=== PATIENT | male | born 1965 | race Caucasian/White ===

== ENCOUNTER 2017-02-12 15:56 | Emergency (ER) | payer OTHER ==
[2017-02-12 16:02] VITALS: BP 130/99; PULSE 96; TEMP 98.5; BMI 30.7
--- NOTE | 2017-02-12 17:21 | PDOC ---
History of Present Illness - General Chief Complaint: Eye Problem Stated Complaint: PINK EYE Time Seen by Provider: 02/12/17 17:20 History Source: Patient Exam Limitations: No Limitations - History of Present Illness Initial Comments: 02/12/17 18:08 My Chief Complaint: Redness and discharge from left eye starting today History of present illness: Patient is a 51-year-old male with a history of depression here today complaining of irritation to his left eye with yellowish discharge and redness that started today. Patient denies any injury to his eye. Patient denies any change in vision. Patient denies any other symptoms. 02/12/17 18:12 Timing/Duration: getting worse (today ) Severity: mild Associated Symptoms: reports: denies symptoms Past History - Past Medical History Allergies/Adverse Reactions: Allergies Allergy/AdvReac Type Severity Reaction Status Date / Time ciprofloxacin [From Cipro] AdvReac Intermediate Verified 02/12/17 16:02 ciprofloxacin HCl AdvReac Intermediate Verified 02/12/17 16:02 [From Cipro] Home Medications: Ambulatory Orders Bupropion HCl [Wellbutrin -] 75 mg PO DAILY 02/12/17 Risperidone [Risperdal] 2 mg PO DAILY 02/12/17 Psychiatric Problems: Yes (depression) - Suicide/Smoking/Psychosocial Hx Smoking History: Current every day smoker Have you smoked in the past 12 months: Yes Number of Cigarettes Smoked Daily: 20 Information on smoking cessation initiated: Yes Hx Alcohol Use: No Drug/Substance Use Hx: No Substance Use Type: None Review of Systems - Review of Systems Able to Perform ROS?: Yes Constitutional: No: Symptoms Reported HEENTM: Yes: Eye Pain (irritation left eye with yellowish discharge ). No: Tearing, Recent change in vision, Double Vision, Cataracts Respiratory: No: Symptoms reported Cardiac (ROS): No: Symptoms Reported ABD/GI: No: Symptoms Reported : No: Symptoms Reported Musculoskeletal: No: Symptoms Reported Integumentary: No: Symptoms Reported Neurological: No: Symptoms reported *Physical Exam - Vital Signs Last Vital Signs Temp Pulse Resp BP Pulse Ox 98.5 F 96 H 18 130/99 97 02/12/17 15:59 02/12/17 15:59 02/12/17 15:59 02/12/17 15:59 02/12/17 15:59 - Physical Exam General Appearance: Yes: Appropriately Dressed HEENT: positive: EOMI, BLAS, Other (left conjunctiva erythema, yellowish discharge, sclera injected ). negative: Photophobia, Pharyngeal Erythema, Tonsillar Exudate, Tonsillar Erythema, Nasal Congestion, Rhinorrhea Neck: negative: Lymphadenopathy (R), Lymphadenopathy (L) Respiratory/Chest: positive: Lungs Clear, Normal Breath Sounds. negative: Chest Tender, Respiratory Distress Cardiovascular: positive: Regular Rhythm, Regular Rate, S1, S2 Integumentary: positive: Normal Color Neurologic: positive: Alert, Normal Response, Responsive Medical Decision Making - Medical Decision Making 02/12/17 18:12 Patient is a 51-year-old male with a history of depression here today complaining of irritation to his left eye with yellowish discharge and redness that started today. Patient denies any injury to his eye. Patient denies any change in vision. Patient denies any other symptoms. Left eye conjunctivitis PLAN: Tobramycin 0.3% ophthalmic solution 2 drops in left eye now then 4 times a day for 5 days Patient to follow with residential building inspector if symptoms worsen *DC/Admit/Observation/Transfer Diagnosis at time of Disposition: Conjunctivitis Qualifiers: Conjunctivitis type: acute Acute conjunctivitis type: unspecified Laterality: left Qualified Code(s): H10.32 - Unspecified acute conjunctivitis, left eye; H10.32 - Unspecified acute conjunctivitis, left eye - Discharge Dispostion Disposition: HOME Condition at time of disposition: Stable - Referrals Referrals: Aicha Wiggins MD [Primary Care Provider] - Cabrera Vazquez MD [Staff Physician] - - Patient Instructions Additional Instructions: Apply 2 drops of solution to left eye 4 times a day for 5 days Return to emergency room if symptoms worsen He may follow up with residential building inspector in a few days if symptoms worsen Avoid rubbing your left eye if you must touch her eye wash her hands thoroughly afterwards Patient voiced understanding of discharge instructions and all questions were answered
[2017-02-12] MEDS ORDERED: TOBRAMYCIN 0.3% OPHTH SOLN 5 ML BOTTLE OS ONE (18:09)
[2017-02-12] MEDS ORDERED: TOBRAMYCIN 0.3% OPHTH SOLN 5 ML BOTTLE ONE (18:11)
== END 2017-02-12 18:19 | disposition home or self-care (01) ==
LOC: JERFT 15:56
DX: H10.32 Unspecified acute conjunctivitis, left eye (principal); F32.9 Major depressive disorder, single episode, unspecified
CPT/HCPCS: 99281-25

== ENCOUNTER 2019-10-29 14:59 | Emergency (ER) | payer OTHER ==
[2019-10-29 15:04] VITALS: BP 141/83; PULSE 89; TEMP 98; BMI 32.1
--- NOTE | 2019-10-29 15:57 | PDOC ---
History of Present Illness - General Chief Complaint: Rash Stated Complaint: RASH Time Seen by Provider: 10/29/19 15:38 - History of Present Illness Initial Comments: 10/29/19 15:54 54-year-old male with a psych history presents for evaluation of a rash on his left flank x1 month no joint pain or systemic symptoms treated with a antibiotic 3 times a day for 7 days the redness never went away. Past History - Medical History Allergies/Adverse Reactions: Allergies Allergy/AdvReac Type Severity Reaction Status Date / Time ciprofloxacin [From Cipro] AdvReac Intermediate Verified 10/29/19 15:04 ciprofloxacin HCl AdvReac Intermediate Verified 10/29/19 15:04 [From Cipro] Home Medications: Ambulatory Orders Bupropion HCl [Wellbutrin -] 75 mg PO DAILY 02/12/17 Risperidone [Risperdal] 2 mg PO DAILY 02/12/17 Doxycycline Hyclate 100 mg PO BID #21 tablet 10/29/19 COPD: No Psychiatric Problems: Yes (depression) - Psycho-Social/Smoking History Smoking History: Current every day smoker Have you smoked in the past 12 months: Yes Number of Cigarettes Smoked Daily: 20 Information on smoking cessation initiated: No - Substance Abuse Hx (Audit-C & DAST Scrn) How often the patient has a drink containing alcohol: Never Score: In Men: 4 or > Positive; In Women: 3 or > Positive: 0 Screen Result (Pos requires Nsg. Audit-10AR): Negative Review of Systems - Review of Systems Constitutional: No: Fever Musculoskeletal: No: Joint Pain Integumentary: Yes: Rash *Physical Exam - Vital Signs Last Vital Signs Temp Pulse Resp BP Pulse Ox 98 F 89 18 141/83 98 10/29/19 15:01 10/29/19 15:01 10/29/19 15:01 10/29/19 15:01 10/29/19 15:01 - Physical Exam 10/29/19 15:54 There is a large erythemic mildly warm rash with well-circumscribed borders a clear center and a very faint larger erythemic rash around it with central clearing on the left side of the abdomen and flank Medical Decision Making - Medical Decision Making 10/29/19 15:55 Discussed this case with emergency room attending. Patient is most likely positive for Lyme will get Lyme Babesia and Ehrlichia titers and start the patient on a course of doxycycline with follow-up with his primary care physician. I have reviewed the pathophysiology with the patient. They are in agreement with the treatment plan all questions were answered to their satisfaction. Understanding for follow-up without fail was also conveyed to the patient. Again they are in agreement. Patient advised on the warnings for doxycycline photosensitivity. Patient does work outdoors he was encouraged to wear large BiPAP and use plenty of sunscreen multiple times a day with reapplications. Discharge - Discharge Information Problems reviewed: Yes Clinical Impression/Diagnosis: Lyme disease Condition: Stable Disposition: HOME - Admission No - Additional Discharge Information Prescriptions: Doxycycline Hyclate 100 mg PO BID #21 tablet - Follow up/Referral Referrals: Richard Berman MD [Primary Care Provider] - - Patient Discharge Instructions Patient Printed Discharge Instructions: DI for Lyme Disease Additional Instructions: Please start the doxycycline and take the medication and finish it as directed. Return to the emergency room for worsening symptoms and without fail follow-up with your primary care physician in 1 to 2 days for further evaluation and treatment options. Doxycycline is a medication which will cause light sensitivity. You will get easily sunburned. You need to keep covered, wear a large brim hat and apply sunscreen multiple times a day. Longsleeve shirts and total body coverage is recommended while on doxycycline. - Post Discharge Activity Work/Back to School Note: Back to Work
[2019-11-01 15:07] LABS: IgG Ab 23 kDa Band Present (.); IgG Ab 28 kDa Band Absent (.)
[2019-11-04 15:07] LABS: E.chaff HME IgG Negative (Neg:<1:64)
[2019-11-04 18:07] LABS: BABESIA MICROTI ANTIBODY IGG <1:10 (Neg:<1:10); BABESIA MICROTI ANTIBODY IGM <1:10 (Neg:<1:10)
== END 2019-10-29 16:01 | disposition home or self-care (01) ==
LOC: JERFT 14:59
DX: A69.20 Lyme disease, unspecified (principal)
CPT/HCPCS: 36415; 86618; 86666; 86753; 99283-25

== ENCOUNTER 2022-06-15 11:22 | Emergency (ER) | payer OTHER ==
[2022-06-15 11:27] VITALS: BP 151/89; PULSE 84; RESP 18; TEMP 97.8; BMI 32.8
[2022-06-15] MEDS ORDERED: DIPHTH,PERTUSS(ACELL),TET 0.5 ML DISP.SYRIN IM ONE ×2 (11:46→11:48)
== END 2022-06-15 11:54 | disposition home or self-care (01) ==
LOC: JERFT 11:22
PROC: 3E0234Z Introduction of Serum, Toxoid and Vaccine into Muscle, Percutaneous Approach (ICD-10-PCS; principal; 2022-06-15)
DX: S91.331A Puncture wound without foreign body, right foot, initial encounter (principal); W26.8XXA Contact with other sharp object(s), not elsewhere classified, initial encounter
CPT/HCPCS: 90715; 99282-25